=== PATIENT | male | born 1945 | race Caucasian/White ===

== ENCOUNTER 2023-06-10 04:46 | Day surgery (SDC) | payer OTHER ==
[2023-06-09 11:06] VITALS: BMI 26.7
[2023-06-10 12:56] VITALS: TEMP 98
[2023-06-10 13:09] VITALS: PULSE 65
[2023-06-10 13:27] VITALS: BP 117/57; RESP 18
== END 2023-06-10 14:06 | disposition home or self-care (01) ==
LOC: JASU-ENDO 04:46
PROVIDERS: ATTEND Internal Medicine Gastroenterology
PROC: 0DBK8ZX Excision of Ascending Colon, Via Natural or Artificial Opening Endoscopic, Diagnostic (ICD-10-PCS; principal; 2023-06-10 12:00)
DX: Z12.11 Encounter for screening for malignant neoplasm of colon (principal); D12.2 Benign neoplasm of ascending colon; K64.8 Other hemorrhoids; K59.89 Other specified functional intestinal disorders; Z86.010 Personal history of colon polyps
CPT/HCPCS: 88305-TC